=== PATIENT | male | born 1955 | race Caucasian/White ===

== ENCOUNTER 2021-04-16 09:00 | Outpatient (CLI) | payer OTHER, SELFPAY ==
--- NOTE | 2021-04-16 09:30 | USCV_ITS ---
Roel Dias Age: 66 Gender: M : 1955 Exam Date: 04/16/2021 09:17 Ordering Phys: Isidro Denton MD ([email or web address] [email or web address]) Technologist: Jericho Vang Exam Location: [facility] – [place] Indication: disorder of arteries Risk Factors: Previous Vascular Surgery: Right Brachial BP: / Left Brachial BP: / Right Left Velocity (cm/s) Spectral Plaque Velocity (cm/s) Spectral Plaque Syst/Diast Broadening Syst/Diast Broadening 87.10/ 22.10 Prox CCA 114.50/ 26.50 95.90/ 24.30 Mid CCA 86.30 / 20.50 61.70/ 19.80 Distal CCA 64.10 / 25.60 99.20/ 19.80 Prox ICA 61.50 / 17.10 Homo 73.50/ 23.90 Mid ICA 71.80 / 31.60 57.30/ 18.80 Distal ICA 78.60 / 35.90 79.40 ECA 86.30 0.77 ICA/CCA 0.83 Antegrade Vertebral Antegrade 36.80/ 11.20 cm/s 42.10/ 14.50 cm/s Tri Subclavian Tri 82.20 60.50 FINDINGS Intimal thickening in the common carotid arteries and at the bifurcation bilaterally. Antegrade flow in the vertebral arteries bilaterally. Normal Doppler flow velocities in the external carotid , vertebral and subclavian arteries bilaterally CONCLUSIONS Intimal thickening in the common carotid arteries and at the bifurcation bilaterally. No significant stenosis or any unstable lesions, based on the above findings Dr Isidro Denton MD [facility] (Electronically Signed) Final Date: 17 April 2021 10:19 S
--- NOTE | 2021-04-16 10:15 | USCV_ITS ---
Roel Dias Age: 66 Gender: M : 1955 Exam Date: 04/16/2021 09:35 Ordering Phys: Isidro Denton MD ([email or web address]) Technologist: Jericho Vang Exam Location: [facility] – [place] Indication: unspecified artery disorder BP: 128 / 78 HR: 58 Rhythm: Sinus Technical Quality: Adequate MEASUREMENTS (Male / Female) Normal Values 2D ECHO LV Diastolic Diameter PLAX 3.5 cm 4.2 - 5.9 / 3.9 - 5.3 cm LV Systolic Diameter PLAX 2.0 cm IVS Diastolic Thickness 1.2 cm 0.6 - 1.0 / 0.6 - 0.9 cm IVS Systolic Thickness 1.6 cm LVPW Diastolic Thickness 1.6 cm 0.6 - 1.0 / 0.6 - 0.9 cm LVPW Systolic Thickness 1.5 cm LVOT Diameter 2.0 cm LV Ejection Fraction 2D Teich 78.0 % LV Ejection Fraction MOD 2C 72.3 % LV Ejection Fraction 2C AL 72.6 % LA Diameter 2.8 cm LA Width 2.9 cm LA Height 2.9 cm RA Width 3.0 cm RA Height 3.9 cm Aorta at Sinotubular Diameter 3.1 cm M-MODE Aortic Annulus Diameter 3.3 cm LA Ao Ratio MM 0.9 DOPPLER AV Peak Velocity 129.0 cm/s LVOT Peak Velocity 119.0 cm/s AV Area Cont Eq vti 3.2 cm squared AV Area Cont Eq pk 3.0 cm squared MV Peak Velocity 90.0 cm/s MV Area PHT 4.0 cm squared Mitral E to A Ratio 1.3 MV E' Velocity 39.0 cm/s Mitral E to MV E' Ratio 8.7 Mitral E to LV E' Lateral Ratio 9.7 Mitral E to LV E' Septal Ratio 8.0 TR Peak Velocity 81.7 cm/s TR Peak Gradient 2.7 mmHg TR Mean Velocity 64.2 cm/s TR Mean Gradient 1.8 mmHg TR Velocity Time Integral 20.3 cm Right Atrial Pressure 3.0 mmHg Pulmonary Artery Systolic Pressu 5.7 mmHg PV Peak Velocity 63.0 cm/s RV Acceleration Time 0.1 s RV Ejection Time 0.3 s RV AcT/ET 0.4 FINDINGS Left Ventricle Normal left ventricular size and systolic function, EF 66 %. No regional wall motion abnormalities. Mild left ventricular hypertrophy. Right Ventricle The right ventricle is normal in size and function. Right Atrium The right atrium is normal in size. Left Atrium The left atrium is normal in size. Mitral Valve No gross abnormalities noted Aortic Valve No gross abnormalities noted Tricuspid Valve No gross abnormalities noted Pulmonic Valve Pulmonic valve not well visualized. Pericardium Normal pericardium without effusion. Aorta Normal ascending aorta dimension. CONCLUSIONS Normal left ventricular size and systolic function, EF 66 %. No regional wall motion abnormalities. Mild left ventricular hypertrophy. Normal cardiac chamber sizes. No significant stenotic or regurgitant lesions. There is no pericardial effusion. There are no intracardiac masses. No previous study is available for comparison. Dr Isidro Denton MD [facility] (Electronically Signed) Final Date: 16 April 2021 18:53 S
== END 2021-04-16 09:01 | disposition home or self-care (01) ==
LOC: US 09:02
PROVIDERS: PCP Family Medicine; Visit Provider Internal Medicine Cardiovascular Disease
DX: I77.9 Disorder of arteries and arterioles, unspecified (principal)
CPT/HCPCS: 93306; 93880

== ENCOUNTER → 2021-05-10 15:38 | Outpatient (BNVA) | payer MEDICARE, SELFPAY | PROVIDERS: PCP Family Medicine; Visit Provider Orthopaedic Surgery | DX: Z01.812 Encounter for preprocedural laboratory examination (principal); Z20.822 Contact with and (suspected) exposure to COVID-19 | CPT/HCPCS: 87635 ==

== ENCOUNTER 2021-05-16 06:02 | Day surgery (SDC) | payer OTHER, MEDICARE, SELFPAY ==
[2021-05-15 11:38] VITALS: BMI 24.2
[2021-05-16] VITALS (13 sets, daily range): BP systolic 126–157; BP diastolic 65–82; PULSE 52–68; RESP 14–18; TEMP 36.2–36.4; O2SAT 97–100
[2021-05-16] MEDS: sodium chloride 0.9% 1,000 ML 30 ML IV (06:40)
--- NOTE | 2021-05-16 07:24 | W.PM.OPSUD ---
Surgery/Procedure H&P Update DATE OF PROCEDURE: May 16, 2021 DATE H&P PERFORMED: 04/23/21 PREOP DIAGNOSIS: Mass left hand PLANNED PROCEDURE: Operation Date: 05/16/21 07:00 Proposed Procedures p Excision Of Ganglion Cyst L hand M67.442 [id number](Left) - Balwinder Rangel MD
--- NOTE | 2021-05-16 08:14 | P.OP_ITS ---
Operative Report Date of procedure: May 16, 2021 Pre-op Diagnosis: Mass left hand Post-op Diagnosis: Osteophyte left hand index metacarpal Procedure Done: Removal of osteophyte left hand index metacarpal Pathology: other Pathology: Small foreign body was sent to pathology Surgeon: Balwinder Rangel Anesthesia: Local Tourniquet time (min): 20 Findings: The patient had a tender prominent osteophyte over his index finger ul david metacarpal head. A small foreign body was identified overlying the osteophyte that was sent for pathology Condition: stable Disposition: PACU Procedure: The patient was taken to the operating room. He was prepped and draped with his left hand exposed. A timeout was performed. The hand was infiltrated with approximately 2 cc of 0.5% Marcaine. A longitudinal incision was made over the palpable prominence of the index finger metacarpal. Dissection was carried down through the skin revealing what was felt to be a prominent osteophyte of the index metacarpal. Overlying that osteophyte a small dark sliver-like foreign body was identified. This was removed and sent for pathology for better identification. The periosteum over the metacarpal was then divided longitudinally and reflected dorsally and palmarly. A rongeur was used to remove prominent osteophyte of the bone. The skin was then reapproximated with 3-0 Prolene. A compressive dressing was applied. The patient was taken recovery room in stable condition.
--- NOTE | 2021-05-16 15:16 | ANE.PACU2 ---
Inpatient post-anesthesia follow up: Airway intact: Yes Vital signs: Temperature 97.6 F Pulse Rate 63 Respiratory Rate 15 Blood Pressure 157/82 Pulse Oximetry 97 Oxygen Delivery Me thod Room Air Oxygen Flow Rate 8 Fraction of Inspir ed Oxygen Hydration adequate: Yes Nausea and vomiting: No Pain level: 2 Mental status: Baseline
== END 2021-05-16 08:59 | disposition home or self-care (01) ==
PROVIDERS: PCP Family Medicine; Visit Provider Orthopaedic Surgery
PROC: (CPT 10120; principal; 2021-05-16 07:00)
DX: S60.552A Superficial foreign body of left hand, initial encounter (principal); X58.XXXA Exposure to other specified factors, initial encounter; F03.90 Unspecified dementia, unspecified severity, without behavioral disturbance, psychotic disturbance, mood disturbance, and anxiety; E78.5 Hyperlipidemia, unspecified
CPT/HCPCS: 10120; 88300; J2250; J3490; J7030

== ENCOUNTER 2021-05-22 11:29 | Outpatient (CLI) | payer OTHER, SELFPAY ==
[2021-05-22 12:00] VITALS: BMI 23.5
--- NOTE | 2021-05-22 12:22 | NMCV_ITS ---
NM je perf SPECT r/s* [id number] Roel Dias Age: 66 Gender: M : 1955 Exam Date: 05/22/2021 12:48 Ordering Phys: Isidro Denton MD ([email or web address]) Technologist: DEWAYNE Parra Exam Location: [facility] Indications: CHEST PAIN STRESS TEST Please [facility] for [facility] IMAGE PROTOCOL Rest/Stress 1 Exercise Day Radiopharmaceutical Dose (mCi) Administration Site Administered by Rest: Tc-99m 10.4 IV DEWAYNE Lomeli Sestamibi Stress:Tc-99m 32.3 IV DEWAYNE Parra Sestamikeegan Rest: 22-May-2021 60 Discovery 630 Stress: 22-May-2021 15 Discovery 630 Radiopharmaceutical was injected at 85 % maximum heart rate. Images obtained in supine and prone position. SPECT RESULTS Technical Quality: Excellent Raw Data Analysis: Normal Image Corrections: Patient motion artifact - motion correction applied Summed Stress Score: 0 Summed Rest Score: 0 Summed Difference Score: 0 PERFUSION FINDINGS Fairly uniform myocardial tracer uptake with no significant perfusion abnormalities FUNCTIONAL RESULTS (calculated via Gated SPECT) Stress Image LV EF (%): 89 Stress EDV (mL):56 TID: 0.74 Stress ESV (mL):6 FUNCTIONAL FINDINGS: Segmental wall motion analysis revealing no gross wall motion abnormalities. IMPRESSIONS 1. Unremarkable myocardial perfusion imaging 2. Normal LV ejection fraction of 89%. 3. LV wall motion analysis revealing no gross wall motion of normalities. 4. Normal LV volume. No significant coronary ischemia, based on the above finding Dr Isidro Denton MD [facility] (Electronically Signed) Final Date: 22 May 2021 17:50 S
--- NOTE | 2021-05-22 12:22 | ECG_ITS ---
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 Interpretive Statements NAME OF STUDY: EXERCISE SESTAMIBI STRESS TEST INDICATION: Chest Pain PROCEDURE: The baseline electrocardiogram showed normal sinus rhythm with normal ST-Ts incomplete right bundle branch block. At the baseline, the patient's blood pressure was 112/66 mm Hg with a heart rate of 72. The patient exercised for 10 minutes and 30 seconds on a standard Candelario protocol. Patient attained a maximum heart rate of 132 beats per minute( 85 % of the maximum predicted heart rate) with a blood pressure at the peak exercise of 171/49 mm Hg. The EKG at the peak exercise revealed no significant changes. Patient did not have any chest pain or any significant arrhythmis with the exercise Sestamibi was injected 1 minute prior to the peak exercise During the recovery phase, there were no new changes. Blood pressure at the end of the recovery phase was 128/47 mm Hg with a heart rate of 88 per minute. CONCLUSION: 1. No significant EKG changes with the treadmill exercise 2. No exercise-induced chest pain or cardiac arrhythmia 3. Good exercise tolerance, attained a maximum of 13.5 METs 4. Sestamibi/Sestamibi perfusion results pending; see separate report. Electronically Signed On 05-30-2021 0:27:32 CDT by Isidro Denton M.D. [id number]
[2021-05-22 14:12] VITALS: BP 128/47; PULSE 72
== END 2021-05-22 11:30 | disposition home or self-care (01) ==
PROVIDERS: PCP Family Medicine; Visit Provider Internal Medicine Cardiovascular Disease
DX: R07.9 Chest pain, unspecified (principal)
CPT/HCPCS: 78452; 93017; A9500

== ENCOUNTER → 2021-07-02 08:59 | Outpatient (BNVA) | payer OTHER, SELFPAY | PROVIDERS: PCP Family Medicine; Visit Provider Nurse Practitioner Family | DX: Z20.822 Contact with and (suspected) exposure to COVID-19 (principal) | CPT/HCPCS: 87635 ==

== ENCOUNTER → 2021-07-09 10:10 | Outpatient (BNVA) | payer OTHER, SELFPAY | PROVIDERS: PCP Family Medicine; Visit Provider Nurse Practitioner Family | DX: Z20.822 Contact with and (suspected) exposure to COVID-19 (principal) | CPT/HCPCS: 87635 ==

== ENCOUNTER → 2021-07-16 11:04 | Outpatient (BNVA) | payer OTHER, SELFPAY | PROVIDERS: PCP Family Medicine; Referring Provider Family Medicine; Visit Provider Specialist | DX: G30.9 Alzheimer's disease, unspecified (principal); F02.80 Dementia in other diseases classified elsewhere, unspecified severity, without behavioral disturbance, psychotic disturbance, mood disturbance, and anxiety; F17.210 Nicotine dependence, cigarettes, uncomplicated | CPT/HCPCS: 96116; 99204; 99205 ==

== ENCOUNTER → 2021-10-15 10:52 | Outpatient (BNVA) | payer OTHER, SELFPAY | PROVIDERS: PCP Family Medicine; Visit Provider Specialist | DX: G30.9 Alzheimer's disease, unspecified (principal); F02.80 Dementia in other diseases classified elsewhere, unspecified severity, without behavioral disturbance, psychotic disturbance, mood disturbance, and anxiety; F17.210 Nicotine dependence, cigarettes, uncomplicated | CPT/HCPCS: 99213; 99214 ==

== ENCOUNTER → 2022-02-24 12:33 | Outpatient (BNVA) | payer OTHER, SELFPAY | PROVIDERS: PCP Family Medicine; Visit Provider Internal Medicine Cardiovascular Disease | DX: R00.2 Palpitations (principal); R07.89 Other chest pain; E78.2 Mixed hyperlipidemia; G47.39 Other sleep apnea; F17.210 Nicotine dependence, cigarettes, uncomplicated | CPT/HCPCS: 99213 ==

== ENCOUNTER → 2022-04-09 10:00 | Outpatient (BNVA) | payer OTHER, SELFPAY | PROVIDERS: PCP Family Medicine; Visit Provider Specialist | DX: G30.9 Alzheimer's disease, unspecified (principal); F02.80 Dementia in other diseases classified elsewhere, unspecified severity, without behavioral disturbance, psychotic disturbance, mood disturbance, and anxiety | CPT/HCPCS: 96116; 99214 ==

== ENCOUNTER → 2022-04-29 12:04 | Outpatient (BNVA) | payer OTHER, SELFPAY | PROVIDERS: PCP Family Medicine; Visit Provider Nurse Practitioner Family | DX: R05.9 Cough, unspecified (principal); J06.9 Acute upper respiratory infection, unspecified; J32.0 Chronic maxillary sinusitis; Z20.822 Contact with and (suspected) exposure to COVID-19 | CPT/HCPCS: 87635 ==

== ENCOUNTER 2022-05-03 21:54 | Emergency (ER) | payer OTHER, MEDICARE, SELFPAY ==
[2022-05-03 22:04] VITALS: BP 102/51; PULSE 49; RESP 18; TEMP 36.7; O2SAT 96; BMI 23.5
[2022-05-03 22:09] VITALS: BP 114/49; PULSE 44; RESP 16; O2SAT 96
--- NOTE | 2022-05-03 22:10 | XRR_ITS ---
PROCEDURE INFORMATION: Exam: XR Chest Exam date and time: 05/03/2022 10:18 PM Age: 67 years old Clinical indication: Cough and shortness of breath; Additional info: SOB TECHNIQUE: Imaging protocol: Radiologic exam of the chest. Views: 1 view. COMPARISON: No relevant prior studies available. FINDINGS: Lungs: Unremarkable. No consolidation. Pleural spaces: Unremarkable. No pleural effusion. No pneumothorax. Heart/Mediastinum: Unremarkable. No cardiomegaly. Bones/joints: Unremarkable. XR/XR chest 1V [id number] IMPRESSION: No acute findings.
--- NOTE | 2022-05-03 22:10 | ECG_ITS ---
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 Measurements Intervals [place] Rate: 48 P: 48 OH: 154 QRS: 51 QRSD: 102 T: 60 QT: 450 QTc: 403 Interpretive Statements SINUS BRADYCARDIA POSSIBLE RIGHT VENTRICULAR CONDUCTION DELAY [RSR (QR) IN V1/V2] POSSIBLE LEFT VENTRICULAR HYPERTROPHY [VOLTAGE CRITERIA PLUS LAE OR QRS WIDENING] INTERPRETATION BASED ON A DEFAULT AGE OF 40 YEARS Compared to ECG 06/05/2017 15:40:18 Sinus rhythm no longer present Electronically Signed On 05-04-2022 8:23:22 CDT by Blaise Fitzpatrick M.D. [id number]
[2022-05-04 00:37] LABS: Basophils % 0.2 %; Hematocrit 39.3 % (42.0-52.0); Hemoglobin 12.7 g/dL (11.7-16.6); Lymphocytes # 1.1 10^3/uL (0.8-4.8); Lymphocytes % 5.8 %; Mean Corpuscular HGB Conc 32.3 g/dL (30.0-36.0); Mean Corpuscular Hemoglobin 29.7 pg (28.0-34.0); Mean Platelet Volume 9.8 fL (7.4-10.4); Monocytes % 5.3 %; Neutrophils # 16.05 10^3/uL (1.8-7.7); Neutrophils % 88.2 %; Nucleated Red Blood Cells % 0 %; Platelet Count 412 10^3/cmm (130-400); Red Blood Count 4.27 10^6/uL (4.1-5.3); White Blood Count 18.2 10^3/uL (4.0-10.0)
[2022-05-04 00:56] LABS: Troponin(5th) Baseline 7 ng/L (0-15)
[2022-05-04 01:06] LABS: Alanine Aminotransferase 21 U/L (0-41); Albumin Level 4.4 g/dL (3.5-5.2); Alkaline Phosphatase 83 U/L (40-130); Anion Gap 17.5 (5-19); Aspartate Amino Transferase 17 U/L (0-40); Blood Urea Nitrogen 16 mg/dL (8-23); Calcium 9.8 mg/dL (8.5-10.5); Carbon Dioxide 24 mmol/L (22-29); Chloride 105 mmol/L (98-107); Globulin 2.3 g/dL (1.3-4.6); Glomerular Filtration Rate 96.4 mL/min (90-130); Glucose 112 mg/dL (65-115); Magnesium 2.2 mg/dL (1.7-2.3); NT Pro B Type Natriuretic Pept 550 pg/mL (0-125); Osmolality Calculated 296 mOsm/kg (285-295); Potassium 4.5 mmol/L (3.5-5.1); Sodium 142 mmol/L (136-145); Total Bilirubin 0.2 mg/dL (0.15-1.2); Total Protein 6.7 g/dL (6.6-8.7)
--- NOTE | 2022-05-04 15:05 | ED_ITS ---
HPI - SOB/Dyspnea General: Chief Complaint: Shortness of Breath/Dyspnea Stated Complaint: Covid +\Light Head Time Seen by Provider: 05/03/22 23:54 Source: patient History of Present Illness: HPI Narrative: 67 year old male with a history of COVID-19, symptoms began nearly a week ago already presents with dizziness. 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 He presents with a heart rate of 40, and some continued dizziness parities awake alert and talking. He denies any chest discomfort, nice shortness of breath. He has a continued cough. MD elicited complaint: cough Pertinent past history: other Onset (ago): day(s) Context: recent illness Exacerbating factors: nothing Relieving factors: nothing Associated symptoms: Reports dizziness and palpitations; Deny abdominal pain, chest pain, fever(s), myalgias, nausea, syncope or vomiting Review of Systems Const: Denies: fever(s), chills or body aches Eyes: Denies: change in vision ENMT: Denies: throat pain Card: Reports: palpitations; Denies: chest pain or syncope Resp: Denies: dyspnea, productive cough, non-productive cough or wheezing GI: Denies: abdominal pain, nausea, vomiting, diarrhea or hematochezia Skin/Breast: Denies: rash Neuro: Reports: dizziness; Denies: headache(s) or confusion PFSH ED PFSH: Medical History Adjustment disorder with depressed mood Ataxia Chest pain Dementia Dizziness and giddiness GERD (gastroesophageal reflux disease) Hx of retained foreign body fully removed Hyperlipidemia Insomnia Low back pain Memory loss Peripheral vertigo Sleep apnea Syncope and collapse Surgical History History of back surgery History of mandibular surgery Family History Family/Other Cancer CAD (coronary artery disease) Lung disease Father Dementia Grandfather Dementia Brother Diabetes Sister Diabetes Lung disease Other Hyperlipidemia Denies family history of Clotting disorder Chronic kidney disease (CKD) Suicide Anesthesia complication Bleeding disorder Stroke Social History Smoking and tobacco status: current every day smoker cigarettes Packs smoked per day: 1 Years cigarettes smoked: 50 Second hand smoke exposure: No Alcohol intake: never Caregiver/support person: No Lives independently: Yes Household members: spouse Marital status: service: Yes branch: [employer] Current occupational status: retired History of recent travel: No Current gender identity: Male Special rex needs: No Physical Exam Const: COMMON NORMALS: alert GENERAL APPEARANCE: well developed ORIENTATION/CONSCIOUSNESS: Yes awake, Yes oriented to person, Yes oriented to place and Yes oriented to time HENMT: COMMON NORMALS: normocephalic HEAD & SCALP: normocephalic FACE & SINUS: normal facial exam Eye: COMMON NORMALS: Equal, round and reactive pupils present, EOMs intact bilaterally and conjunctivae normal CONJUNCTIVA: Yes conjunctivae normal PUPIL: Yes Equal, round and reactive pupils present Neck/C-Spine: GENERAL: No tracheal deviation CERVICAL SPINE: No Paracervical spasm Chest: CHEST: Yes Symmetrical chest wall rise Resp: EFFORT & INSPECTION: No tachypneic, No respiratory distress and No uses accessory muscles AUSCULTATION: no rhonchi and lung sounds not diminished Cardio: COMMON NORMALS: regular rhythm RATE: bradycardic RHYTHM: regular rhythm HEART SOUNDS: no murmurs PERIPHERAL PULSES: radial pulses present GI: INSPECTION: No abdominal distension PALPATION: No Guarding due to palpation present (GI) and No Rigid due to palpation Extremity: COMMON NORMALS: no pedal edema Neuro: RYAN COMA SCALE: document GCS findings Ryan coma scale eye opening: Spontaneous [place] coma scale verbal response: Orientated [place] coma scale motor response: Obey commands Ryan coma scale total score: 15 SENSORIUM/ORIENTATION: Yes alert, Yes oriented to person, Yes oriented to place and Yes oriented to time Psych: COMMON NORMALS: mental status grossly normal and speech normal SPEECH: Yes normal speech Skin: COMMON NORMALS: no rashes or lesions noted GENERAL SKIN EXAM: no rashes or lesions noted Course Vital Signs: Vital signs: Vital Signs Temperature 98.0 F 05/03/22 22:04 Pulse Rate 44 L 05/03/22 22:09 Respiratory Rate 16 05/03/22 22:09 Blood Pressure 114/49 05/03/22 22:09 Pulse Oximetry 96 05/03/22 22:09 Oxygen Delivery Me thod 05/03/22 22:04 MDM - SOB/Dyspnea Medical Decision Making 67 year old gentleman with Norbert cardia that is symptomatic. He is dizzy. He is not syncable. He has no chest pain. He is normotensive essentially. He has received fluid bolus here. It's just X-ray is negative. There is no block on his EKG. His laboratory is benign. 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 I suspect this is an effect of COVID-19. the patient denies ever having had chest pain. Lab Data : 05/04/22 00:17 05/04/22 00:17 Labs/Radiology: Radiology Impressions Chest X-Ray 05/03/22 22:10 IMPRESSION: No acute findings. Laboratory Results WBC 18.2 10^3/uL (4.0-10.0) H 05/04/22 00:17 RBC 4.27 10^6/uL (4.1-5.3) 05/04/22 00:17 Hgb 12.7 g/dL (11.7-16.6) 05/04/22 00:17 Hct 39.3 % (42.0-52.0) L 05/04/22 00:17 MCV 92.0 fl (80-94) 05/04/22 00:17 MCH 29.7 pg (28.0-34.0) 05/04/22 00:17 MCHC 32.3 g/dL (30.0-36.0) 05/04/22 00:17 RDW 14.0 % (12.1-15.1) 05/04/22 00:17 Plt Count 412 10^3/cmm (130-400) H 05/04/22 00:17 MPV 9.8 fL (7.4-10.4) 05/04/22 00:17 Neut % (Auto) 88.2 % 05/04/22 00:17 Lymph % (Auto) 5.8 % 05/04/22 00:17 Preston % (Auto) 5.3 % 05/04/22 00:17 Eos % (Auto) 0.0 % 05/04/22 00:17 Baso % (Auto) 0.2 % 05/04/22 00:17 Neut # (Auto) 16.05 10^3/uL (1.8-7.7) H 05/04/22 00:17 Lymph # (Auto) 1.1 10^3/uL (0.8-4.8) 05/04/22 00:17 Preston # (Auto) 1.0 10^3/uL (0.2-0.9) H 05/04/22 00:17 Eos # (Auto) 0.0 10^3/uL (0.0-0.8) 05/04/22 00:17 Baso # (Auto) 0.0 10^3/uL (0.0-0.1) 05/04/22 00:17 Nucleated RBC % (auto) 0 % 05/04/22 00:17 Nucleated RBCs # 0.0 /100WBC 05/04/22 00:17 Sodium 142 mmol/L (136-145) 05/04/22 00:17 Potassium 4.5 mmol/L (3.5-5.1) 05/04/22 00:17 Chloride 105 mmol/L (98-107) 05/04/22 00:17 Carbon Dioxide 24 mmol/L (22-29) 05/04/22 00:17 Anion Gap 17.5 (5-19) 05/04/22 00:17 BUN 16 mg/dL (8-23) 05/04/22 00:17 Creatinine 0.8 mg/dL (0.7-1.2) 05/04/22 00:17 GFR Calculation 96.4 mL/min (90-130) 05/04/22 00:17 Glucose 112 mg/dL (65-115) 05/04/22 00:17 Calculated Osmolality 296 mOsm/kg (285-295) H 05/04/22 00:17 Calcium 9.8 mg/dL (8.5-10.5) 05/04/22 00:17 Magnesium 2.2 mg/dL (1.7-2.3) 05/04/22 00:17 Total Bilirubin 0.2 mg/dL (0.15-1.2) 05/04/22 00:17 AST 17 U/L (0-40) 05/04/22 00:17 ALT 21 U/L (0-41) 05/04/22 00:17 Alkaline Phosphatase 83 U/L (40-130) 05/04/22 00:17 Troponin T Baseline 7 ng/L (0-15) 05/04/22 00:17 NT-Pro-B Natriuret Pep 550 pg/mL (0-125) H 05/04/22 00:17 Total Protein 6.7 g/dL (6.6-8.7) 05/04/22 00:17 Albumin 4.4 g/dL (3.5-5.2) 05/04/22 00:17 Globulin 2.3 g/dL (1.3-4.6) 05/04/22 00:17 Discharge Plan Discharge Patient Disposition: Home Clinical Impression: COVID-19, Bradycardia Condition: Stable Prescriptions: No Action famotidine 20 mg tablet 20 mg PO BID multivitamin Tablet 1 tab PO DAILY cholecalciferol (vitamin D3) 50 mcg (2,000 unit) capsule 50 mcg PO DAILY simvastatin 20 mg tablet 20 mg PO DAILY azithromycin [Zithromax Z-Tre] 250 mg tablet See Rx Instructions PO .COMPLEX Qty: 6 0RF Rx Instructions: take 500 mg today (day 1), then 250 mg for 4 days (days 2-5) PO promethazine-DM 6.25-15 mg/5 mL syrup 5 - 10 ml PO Q6H Qty: 200 0RF methylprednisolone [Medrol (Tre)] 4 mg tablets,dose pack See Rx Instructions PO PER PKG DIR Qty: 21 0RF Rx Instructions: PO PER PKG DIR metoprolol tartrate 25 mg tablet 12.5 mg PO BID Qty: 100 3RF Rx Instructions: Take 1/2 tab by mouth twice daily galantamine 8 mg tablet 8 mg PO BID Qty: 180 1RF Rx Instructions: administer with AM and PM meals Discharge Orders: Discharge ED (Routine); Ordered 05/04/22 Ordered By: El Whitten Referrals: Cindy Samuels MD [Primary Care Provider] - 1-3 days Isidro Denton MD [Physician] - Activity Restrictions/Additional Instructions: Return for any worsening chest discomfort, shortness of breath, inability to control fever, vomiting, etc. Monitor your heart rate at home return for symptomatic low heart rates. Case management will call you regarding setting up your Holter monitor. 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 Coding Level of Care Code ED Microfilm Machine Operator for Marlon Diego
--- NOTE | 2022-05-05 15:29 | DCPLANNER ---
Addendum entered by Lissa Asencio 05/15/22 08:27: or nurse manager received the following message from the [facility] clinic regarding follow up appointment: spoke with pt - he stated I don't feel like I needs another monitor since I had one fro 30 days already and my current symptoms are only due to Covid since Dr Denton had done all the prior testing and told me he doesn't need to see me again Original Note: or nurse manager had message to schedule an outpatient halter monitor for patient. Patient has [employer] insurance, case management director sent patients information to the front office staff at [facility]. If the self pay specialist wants patient to have an halter monitor the self pay specialist can place the order for patient. or nurse manager sent patients information to the front office staff at [facility]. Patients information will be printed and reviewed. Clinic will call patient with appointment information.
== END 2022-05-04 02:06 | disposition home or self-care (01) ==
PROVIDERS: Emergency Provider Emergency Medicine; PCP Family Medicine
DX: U07.1 COVID-19 (principal); R00.1 Bradycardia, unspecified; F17.210 Nicotine dependence, cigarettes, uncomplicated; F03.90 Unspecified dementia, unspecified severity, without behavioral disturbance, psychotic disturbance, mood disturbance, and anxiety; E78.5 Hyperlipidemia, unspecified
CPT/HCPCS: 71045; 80053; 83735; 83880; 84484; 85025; 93005; 93246; 99285

== ENCOUNTER → 2022-11-27 08:48 | Outpatient (BNVA) | payer OTHER, SELFPAY | PROVIDERS: PCP Family Medicine; Visit Provider Specialist | DX: G30.9 Alzheimer's disease, unspecified (principal); F02.80 Dementia in other diseases classified elsewhere, unspecified severity, without behavioral disturbance, psychotic disturbance, mood disturbance, and anxiety | CPT/HCPCS: G0463 ==

== ENCOUNTER → 2023-01-02 11:12 | Outpatient (BNVA) | payer OTHER, SELFPAY | PROVIDERS: PCP Family Medicine; Visit Provider Specialist | DX: E78.2 Mixed hyperlipidemia (principal); Z72.0 Tobacco use | CPT/HCPCS: 99214 ==

== ENCOUNTER → 2023-01-08 15:30 | Outpatient (BNVA) | payer MEDICARE, SELFPAY | PROVIDERS: PCP Family Medicine; Visit Provider Family Medicine | DX: M79.645 Pain in left finger(s) (principal) | CPT/HCPCS: 73130 ==

== ENCOUNTER → 2023-11-10 14:43 | Outpatient (BNVA) | payer MEDICARE, SELFPAY | PROVIDERS: PCP Family Medicine; Visit Provider Internal Medicine Cardiovascular Disease | DX: R07.9 Chest pain, unspecified (principal); R07.89 Other chest pain; E78.2 Mixed hyperlipidemia; Z72.0 Tobacco use; G47.33 Obstructive sleep apnea (adult) (pediatric) | CPT/HCPCS: 93005; 99214 ==

== ENCOUNTER 2024-02-15 20:00 | Outpatient (CLI) | payer OTHER, SELFPAY | END 2024-02-15 20:01 | disposition home or self-care (01) | LOC: SLEEP 02-16 06:23 | PROVIDERS: PCP Family Medicine; Visit Provider Family Medicine | DX: G47.33 Obstructive sleep apnea (adult) (pediatric) (principal) | CPT/HCPCS: 95810 ==

== ENCOUNTER 2024-04-05 20:13 | Emergency (ER) | payer OTHER, MEDICARE, SELFPAY ==
[2024-04-05 20:17] VITALS: BP 128/63; PULSE 65; RESP 16; TEMP 36.8; O2SAT 98
--- NOTE | 2024-04-05 20:34 | XRR_ITS ---
PROCEDURE INFORMATION: Exam: XR Left Hand Exam date and time: 04/05/2024 8:50 PM Age: 69 years old Clinical indication: Injury or trauma; Other: Cut lt middle finger; Laceration; Left; Injury details: It is the lt hand first 3 images were marked wrong; Additional info: Skill saw injury TECHNIQUE: Imaging protocol: Radiologic exam of the left hand. Views: 3 or more views. COMPARISON: No relevant prior studies available. FINDINGS: Bones/joints: No acute fractures or subluxations. Soft tissues: Soft tissue swelling and irregularity of the distal hand overlying the proximal 3rd digit. There is a 3.0 cm metallic density overlying the third carpometacarpal phalangeal joint. XR/XR hand LT min 3V* [id number] IMPRESSION: No acute fractures or subluxations. Soft tissue swelling and irregularity of the distal hand overlying the proximal 3rd digit. There is a 3.0 cm metallic density overlying the third carpometacarpal phalangeal joint.
[2024-04-05] MEDS: tetanus-dipt-pertussis 0.5 mL SDV IM (20:35)
[2024-04-05] MEDS: lidocaine 2% INJ 20 mL INJECTION (20:41)
--- NOTE | 2024-04-05 20:41 | ED_ITS ---
HPI - Wound/Laceration General: Chief Complaint: Wound/Laceration Stated Complaint: lac on Left finger/hand Time Seen by Provider: 04/05/24 20:23 Source: patient Mode of arrival: ambulatory Limitations: no limitations History of Present Illness: Patient is a 69-year-old male presenting to the emergency department for a laceration to his left middle finger onset prior to arrival. Patient was using a skill saw when it slipped and cut the dorsal aspect of his left middle finger. His tetanus is not up-to-date. Bleeding controlled on arrival with direct pressure. Is not on any blood thinners. No distal neurovascular complaints. He still has full range of motion of the finger. States the pain is mild at this time. No other injuries. No other symptoms to report at this time. Onset (ago): minute(s) Extremity Location: Left: hand Place: home Patient tetanus UTD: No Context: accidental Associated symptoms: Denies chills, fever(s), nausea or vomiting Treatments prior to arrival: bandage Review of Systems General: Reports: 10 or more systems reviewed and unremarkable except in HPI and below Const: Denies: fever(s) or chills Card: Denies: chest pain Resp: Denies: dyspnea GI: Denies: abdominal pain, nausea, vomiting or diarrhea Musc: Denies: extremity pain or joint pain Skin/Breast: Reports: skin pain, skin tenderness and new lesions (laceration to left middle finger); Denies: rash Neuro: Denies: headache(s) [facility] ED PFSH: Medical History Chest pain Ataxia Memory loss Insomnia Adjustment disorder with depressed mood Dizziness and giddiness GERD (gastroesophageal reflux disease) Low back pain Peripheral vertigo Dementia Hx of retained foreign body fully removed Hyperlipidemia Sleep apnea Syncope and collapse Surgical History History of mandibular surgery History of back surgery Family History Family/Other Cancer CAD (coronary artery disease) Lung disease Father Dementia Grandfather Dementia Brother Diabetes Sister Diabetes Lung disease Other Hyperlipidemia Denies family history of Clotting disorder Chronic kidney disease (CKD) Suicide Anesthesia complication Bleeding disorder Stroke Social History (Reviewed 04/05/24 @ 20:48 by ETTA Hoffmann Smoking and tobacco/nicotine status: former use of tobacco/nicotine Second hand smoke exposure: No Alcohol intake: never Substance/Drug Use: never Caregiver/support person: No Lives independently: Yes Household members: spouse Marital status: service: Yes branch: [employer] Current occupational status: retired Current gender identity: Male Special rex needs: No Physical Exam Const: COMMON NORMALS: no acute distress, average body habitus, patient oriented x3, no limitations, healthy appearing, alert and well nourished HENMT: COMMON NORMALS: normocephalic and atraumatic HEAD & SCALP: normocephalic and atraumatic Neck/C-Spine: COMMON NORMALS: full ROM, no lymphadenopathy, supple and no meningeal signs Resp: COMMON NORMALS: normal respiratory effort, No use of accessory muscles and clear to auscultation bilaterally AUSCULTATION: clear to auscultation bilaterally Cardio: COMMON NORMALS: regular rate and regular rhythm RATE: regular rate RHYTHM: regular rhythm Extremity: COMMON NORMALS: full ROM and capillary refill normal NARRATIVE EXTREMITY EXAM: No bony joint tenderness. Full range of motion. No joint enlargement. Neuro: COMMON NORMALS: patient oriented x3 SENSORIUM/ORIENTATION: Yes alert MENINGEAL SIGNS: Yes no meningeal signs Skin: COMMON NORMALS: turgor normal NARRATIVE SKIN EXAM: Superficial laceration dorsal aspect of patient's left middle finger with no active bleeding at this time. Wound does appear contaminated. No tendon or underlying structure exposure. GENERAL SKIN EXAM: turgor normal Procedures Laceration Laceration 1: Site: upper extremity Side (If applicable): left Size (cm): 7 Description: linear and contaminated Depth: involves muscle layer Local Anesthetic: lidocaine 2% Amount of anesthesia used (mL): 6 Pre-repair: wound explored, irrigated extensively and deep structures intact Skin layer closed with: nylon Size (cm): 5-0 Number of sutures: 10 Technique: simple, interrupted Nerve Block Nerve Block 1: Time out performed: No Local Anesthetic: lidocaine 2% Amount of anesthesia used (mL): 6 Side: left Nerve Blocks: digital Procedure Successful: Yes Patient Tolerated Procedure: well Complications: none Additional Comments: adequate anesthesia obtained Course Vital Signs: Vital signs: Vital Signs Temperature 98.2 F 04/05/24 20:17 Pulse Rate 68 04/05/24 21:44 Respiratory Rate 16 04/05/24 21:44 Blood Pressure 128/63 04/05/24 20:17 Pulse Oximetry 99 04/05/24 21:44 MDM - Wound/Laceration Medical Decision Making Patient presented due to laceration. His tetanus was updated today. Vitals normal on arrival and bleeding was controlled direct pressure. Wound did appear contaminated this was cleaned after digital block was performed with adequate anesthesia obtained. Laceration was repaired, see procedure note. Wound was irrigated extensively with premix Betadine and normal saline. Procedure tolerated well. He is started on clindamycin and proper wound care instructions were discussed. Reasons to return also discussed including any signs of infection, patient will be discharged home at this time. He was given 1 tablet of [place] for pain control. Lab Data Radiology Impressions Hand X-Ray 04/05/24 20:34 IMPRESSION: No acute fractures or subluxations. Soft tissue swelling and irregularity of the distal hand overlying the proximal 3rd digit. There is a 3.0 cm metallic density overlying the third carpometacarpal phalangeal joint. All radiology interpretation(s) finalized by discharge Discharge Plan Discharge Patient Disposition: Home Clinical Impression: Finger laceration Qualifiers: Encounter type: initial encounter Finger: ring finger Damage to nail status: without damage Foreign body presence: with foreign body Laterality: left Qualified Code(s): S61.225A - Laceration with foreign body of left ring finger without damage to nail, initial encounter Condition: Stable Prescriptions: New clindamycin HCl 300 mg capsule 300 mg PO BID 7 Days Qty: 14 0RF No Action cholecalciferol (vitamin D3) 50 mcg (2,000 unit) capsule 50 mcg PO DAILY PRN simvastatin 20 mg tablet 20 mg PO DAILY (DME) nebulizer accessories Kit See Rx Instructions .Route Qty: 1 0RF Rx Instructions: 1 nebulizer and all necessary supplies as needed As directed coenzyme Q10 [Co Q-10] 30 mg capsule 30 mg PO DAILY diclofenac sodium 75 mg tablet,delayed release (DR/EC) 75 mg PO BID PRN (Reason: pain) Qty: 60 0RF Rx Instructions: no ibuprofen with this metoprolol tartrate 25 mg tablet 12.5 mg PO BID Qty: 30 0RF Rx Instructions: Must have follow-up for further refills galantamine 8 mg tablet See Rx Instructions .ROUTE .COMPLEX Qty: 180 1RF Dose Instruction: TAKE ONE TABLET BY MOUTH TWICE A DAY FOR COGNITIVE IMPAIRMENT. TAKE MORNING AND EVENING WITH FOOD AND WATER. NOTE THIS IS A CHANGE IN DOSE Rx Instructions: TAKE ONE TABLET BY MOUTH TWICE A DAY FOR COGNITIVE IMPAIRMENT. TAKE MORNING AND EVENING WITH FOOD AND WATER. NOTE THIS IS A CHANGE IN DOSE Discharge Orders: Discharge ED (Routine); Ordered 04/05/24 Ordered By: Chaz Silveira Referrals: Clarita Serrano MD [Primary Care Provider] - Discharge Diet: Usual diet Discharge Activity: Increase activity as tolerated Patient Instructions: Finger Laceration (ED), Pain Management Activity Restrictions/Additional Instructions: Sutures out in 5 to 7 days. Take clindamycin as prescribed. Elevate the extremity and ice as needed. Please do not soak the wound in water. Keep wound dry at all times unless you are dabbing clean with soap and water. Tylenol and ibuprofen for pain. If you develop any new or concerning signs of infection such as any drainage or increased pain/swelling, please return for reevaluation. Otherwise follow-up with primary care as needed. Coding Level of Care Code ED Escort Service Attendant for Marlon Diego
[2024-04-05] MEDS: HYDROcodone-acetaminophen 7.5-325 mg Tablet 1 TAB PO (20:45)
[2024-04-05 21:44] VITALS: PULSE 68; RESP 16; O2SAT 99
[2024-04-05] MEDS: clindamycin 150 mg Capsule 300 MG PO (21:44)
== END 2024-04-05 21:47 | disposition home or self-care (01) ==
PROVIDERS: Emergency Provider Physician Assistant; PCP Family Medicine
DX: S61.223A Laceration with foreign body of left middle finger without damage to nail, initial encounter (principal); F03.90 Unspecified dementia, unspecified severity, without behavioral disturbance, psychotic disturbance, mood disturbance, and anxiety; E78.5 Hyperlipidemia, unspecified; Z87.891 Personal history of nicotine dependence; W27.0XXA Contact with workbench tool, initial encounter; Z23 Encounter for immunization
CPT/HCPCS: 12042; 73130; 90471; 90715; 99283; L0172

== ENCOUNTER 2024-06-06 20:00 | Outpatient (CLI) | payer OTHER, SELFPAY | END 2024-06-06 20:01 | disposition home or self-care (01) | LOC: SLEEP 20:16 | PROVIDERS: PCP Family Medicine; Visit Provider Family Medicine | DX: G47.33 Obstructive sleep apnea (adult) (pediatric) (principal); Z99.89 Dependence on other enabling machines and devices | CPT/HCPCS: 95811 ==

== ENCOUNTER → 2024-11-28 13:41 | Outpatient (BNVA) | payer OTHER, SELFPAY | PROVIDERS: PCP Family Medicine; Visit Provider Orthopaedic Surgery | DX: M65.332 Trigger finger, left middle finger (principal); Z18.9 Retained foreign body fragments, unspecified material | CPT/HCPCS: 99204 ==

== ENCOUNTER → 2024-12-12 14:06 | Outpatient (BNVA) | payer OTHER, SELFPAY | PROVIDERS: PCP Family Medicine; Visit Provider Internal Medicine Cardiovascular Disease | DX: R07.89 Other chest pain (principal); E78.2 Mixed hyperlipidemia; R00.2 Palpitations; Z72.0 Tobacco use | CPT/HCPCS: 99214 ==

== ENCOUNTER 2024-12-27 06:37 | Day surgery (SDC) | payer OTHER, SELFPAY ==
[2024-12-27] VITALS (7 sets, daily range): BP systolic 92–130; BP diastolic 55–75; PULSE 57–63; RESP 14–18; TEMP 36.1–36.7; O2SAT 94–98; BMI 25.0
[2024-12-27] MEDS: sodium chloride 0.9% 1,000 ML 30 ML IV (07:12)
--- NOTE | 2024-12-27 07:41 | W.PM.OPSUD ---
Surgery/Procedure H&P Update DATE OF PROCEDURE: December 27, 2024 DATE H&P PERFORMED: 12/12/24 H&P UPDATE INFORMATION: I have reviewed H&P completed within last 30 days, I have examined patient prior to procedure, No changes to prior documentation, H&P to be scanned into chart and Risks and benefits of the procedure reviewed PREOP DIAGNOSIS: Left long finger trigger finger, foreign body dorsal left hand PRIMARY INDICATION FOR PROCEDURE: Pain and triggering of left long finger, painful foreign body PLANNED PROCEDURE: Operation Date: 12/27/24 08:15 Proposed Procedures p Trigger Finger Release(Left) - Stanley Reynolds MD s EXTRACTION OF FOREIGN BODY OF LEFT MIDDLE FINGER(Left) - Stanley Reynolds MD
--- NOTE | 2024-12-27 07:56 | ANES.PREANE2 ---
Pre-Anesthetic Assessment Height/Weight: Height 5 ft 7 in Weight 160 lb Temp Pulse Resp BP Pulse Ox O2 Del Method 97 F L 57 L 18 121/74 98 Room Air 12/27/24 07:03 12/27/24 07:03 12/27/24 07:03 12/27/24 07:03 12/27/24 07:03 12/27/24 07:03 Preop Diagnosis: Left long finger trigger finger, foreign body dorsal left hand Operation Date: 12/27/24 08:15 Proposed Procedures p Trigger Finger Release(Left) - Stanley Reynolds MD s EXTRACTION OF FOREIGN BODY OF LEFT MIDDLE FINGER(Left) - Stanley Reynolds MD Was Beta Gil taken within 24 hours: N/A Was Clonidine taken within 24 hours: N/A Last intake: Intake Last Liquid Date 12/26/24 Last Liquid Time 22:00 Last Solid Date 12/26/24 Last Solid Time 22:00 Social Tobacco and No alcohol Exam alert, oriented x 3, clear to auscultation bilaterally and regular rate & rhythm Airway Submandibular: within normal limits Cervical ROM: within normal limits Mallampati: Class II Dentition: full Anesthetic Plan ASA status: 3 Anesthesia: MAC Other: No prior issues with anesthesia NPO since yesterday evening History of hypertension on metoprolol GERD, on Pepcid ALISIA, no treatment EKG showing incomplete RBBB Patient follows with cardiology for recurrent chest pains. Plans to follow-up with them in 6 months Plan for MAC anesthesia with local via surgeon Medications/Allergies Home Medications ?Medication ?Instructions ?Recorded ?Confirmed ?Last Taken ?Type simvastatin 20 mg tablet 20 mg PO DAILY 01/30/21 12/26/24 12/26/24 History nebulizer accessories #1 ea 05/13/22 11/28/24 Unknown Rx metoprolol tartrate 25 mg tablet 12.5 mg (1/2 x 25 mg) PO BID #30 11/18/22 12/26/24 12/26/24 Rx tabs cholecalciferol (vitamin D3) 50 50 mcg PO DAILY 01/02/23 12/26/24 12/26/24 History mcg (2,000 unit) capsule coenzyme Q10 30 mg capsule (Co 30 mg PO DAILY 01/02/23 12/26/24 12/26/24 History Q-10) diclofenac sodium 75 mg 75 mg PO BID PRN pain #60 tabs 02/20/23 12/26/24 Unknown Rx tablet,delayed release aspirin 81 mg tablet 81 mg PO DAILY 12/26/24 12/26/24 12/26/24 History famotidine 20 mg tablet (Pepcid) 20 mg PO BID 12/26/24 12/26/24 12/26/24 History memantine 5 mg tablet 5 mg PO DAILY 12/26/24 12/26/24 12/26/24 History montelukast 10 mg tablet 10 mg PO DAILY 12/26/24 12/26/24 12/26/24 History (Singulair) Allergies Allergy/AdvReac Type Severity Reaction Status Date / Time No Known Allergies Allergy Verified 12/27/24 06:54 Current Medications Generic Name Dose Route Start Last Admin Trade Name Freq PRN Reason Stop Dose Admin Sodium Chloride 1,000 mls @ 30 mls/hr 12/27/24 07:00 12/27/24 07:12 Sodium Chloride 0.9% IV 12/28/24 06:59 30 mls/hr .Q24H RANDY Administration PFSH Anesthesia Medical History Chest pain Ataxia Memory loss Insomnia Adjustment disorder with depressed mood Dizziness and giddiness GERD (gastroesophageal reflux disease) Low back pain Peripheral vertigo Dementia Hx of retained foreign body fully removed Hyperlipidemia Sleep apnea Syncope and collapse Surgical History History of mandibular surgery History of back surgery Family History Family/Other Cancer CAD (coronary artery disease) Lung disease Father Dementia Grandfather Dementia Brother Diabetes Sister Diabetes Lung disease Other Hyperlipidemia Denies family history of Clotting disorder Chronic kidney disease (CKD) Suicide Anesthesia complication Bleeding disorder Stroke Social History Smoking and tobacco/nicotine status: current every day tobacco/nicotine user cigarettes Packs smoked per day: 1 Years cigarettes smoked: 50 Second hand smoke exposure: No Alcohol intake: never Substance/Drug Use: never Caregiver/support person: No Lives independently: Yes Household members: spouse Marital status: service: Yes branch: [employer] Current occupational status: retired Current gender identity: Male Special rex needs: No Data Anesthesia Cardiac Studies: Echocardiogram Ultrasound 04/16/21 Sestamibi Stress Test (Cardiology) 05/22/21 Cardiac Event Monitor 03/07/21
[2024-12-27] MEDS: ceFAZolin 2,000 mg SDV 2000 MG IVP (08:08)
[2024-12-27] MEDS: BUPivacaine 0.5% INJ 10 mL INJECTION (08:18)
--- NOTE | 2024-12-27 08:38 | P.OP_ITS ---
Operative Report Date of procedure: December 27, 2024 Surgeon: Stanley Reynolds MD Procedure: Preop diagnosis: Trigger finger left long finger, foreign body dorsal third MCP joint Postop diagnosis: Same Procedure: Left long finger trigger release, excision of foreign body dorsal left hand Surgeon: Stanley Reynolds MD Anesthesia: IV sedation with local anesthetic EBL: None Tourniquet time: 8 minutes at 250 mmHg Indications: Roel is a 69-year-old white male presented the orthopedic clinics with a locking trigger finger left long finger. He said pain problems difficulties with this. Said a previous injury to his hand where he had some metal shrapnel embedded in his hand. He now has a piece just to the third webspace side of the proximal portion proximal phalanx long finger that he states hurts and causes difficulties and would like to have this extracted. It appears to be palpable at the time of exam and therefore I have offered to try and excise this but will not do a large dissection if it is deeper. Patient un derstand this and wishes to proceed with surgical intervention. All risks benefits and treatment alternatives were discussed with him. Procedure: After obtaining written consent patient was taken to the operating room on his [facility]. While on the [facility] he received IV sedation. Pneumatic cuffs placed on the proximal left arm. Left arm was prepped and draped usual fashion. After surgical timeout half percent plain Marcaine was applied to the palmar surface of his hand at the level of the A1 [place] long finger. Incision was then made through the palmar crease directly over the A1 [place]. Sharp dissection taken on down to subcutaneous tissues. Blunt sharp dissection was then done with small tenotomy scissors until tendon sheath was identified. Tendon sheath was divided longitudinally with a #15 blade. Tenotomy scissors were then used to complete the transection of the A1 [place]. Once good release had been achieved fingerprint to range of motion demonstrating good gliding of the tendon. Wound was then closed with 3-0 nylon running horizontal mattress suture. Hand was turned over and identification of a foreign body site was identified. This too was anesthetized with half percent Marcaine plain subsequently a longitudinal incision was made along the border of the proximal phalanx at the level of the MCP joint in the third webspace. Sharp dissection to gone down to subtenons tissues. Tenotomy scissors were then used in a spreading fashion to finally identify the foreign body. Once this was identified and dissected out it is grasped with a pair of pickups and removed in block without any difficulties. Wound was then closed with running 3-0 nylon horizontal mattress suture. Pneumatic cuff deflated after 8 minutes total tourniquet time. Wounds are dressed with Xeroform gauze, sterile gauze dressing, Kerlix wrap, Julian wrap for compression. Patient was awakened transferred to cover room stable condition.
--- NOTE | 2024-12-27 09:13 | ANE.PACU2 ---
Inpatient post-anesthesia follow up: Airway intact: Yes Vital signs: Temperature 97.3 F Pulse Rate 59 Respiratory Rate 18 Blood Pressure 130/73 Pulse Oximetry 98 Oxygen Delivery Me thod Room Air Oxygen Flow Rate 10 Fraction of Inspir ed Oxygen Hydration adequate: Yes Nausea and vomiting: No Pain level: 1 Mental status: Baseline
== END 2024-12-27 09:13 | disposition home or self-care (01) ==
PROVIDERS: PCP Family Medicine; Visit Provider Orthopaedic Surgery
PROC: (CPT 26055; principal; 2024-12-27 08:05)
DX: M65.332 Trigger finger, left middle finger (principal); I45.10 Unspecified right bundle-branch block; G47.33 Obstructive sleep apnea (adult) (pediatric); E78.5 Hyperlipidemia, unspecified; F17.210 Nicotine dependence, cigarettes, uncomplicated; F03.90 Unspecified dementia, unspecified severity, without behavioral disturbance, psychotic disturbance, mood disturbance, and anxiety; K21.9 Gastro-esophageal reflux disease without esophagitis; Z79.82 Long term (current) use of aspirin; Z79.899 Other long term (current) drug therapy; Z18.10 Retained metal fragments, unspecified
CPT/HCPCS: 26075; 26055; J0690; J2704; J3010; J3490; J7030

== ENCOUNTER → 2025-01-09 10:29 | Outpatient (BNVA) | payer OTHER, SELFPAY | PROVIDERS: PCP Family Medicine; Visit Provider Orthopaedic Surgery | DX: Z98.890 Other specified postprocedural states (principal) | CPT/HCPCS: 99024 ==

== ENCOUNTER 2025-01-12 08:02 | Outpatient (CLI) | payer OTHER, SELFPAY ==
--- NOTE | 2025-01-12 08:23 | ECG_ITS ---
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 Interpretive Statements Lung unchanged pre/post procedure; Intraprocedure shortess of breath; Symptoms resoled by discharge PROCEDURE: At the baseline, the patient's blood pressure was 149/72 with a heart rate of 71. The baseline electrocardiogram showed normal sinus rhythm with incomplete right bundle branch block pattern.. The patient exercised for 9 minutes and 52 seconds on a standard Candelario protocol. Patient attained a maximum heart rate of 130 beats per minute(86% of the maximum predicted heart rate) with a blood pressure at the peak exercise of 179/62 mm Hg. The EKG at the peak exercise revealed no significant changes. Patient did not have any chest pain or any significant cardiac arrhythmias with the exercise During the recovery phase, there were no new changes. Blood pressure at the end of the recovery phase was 161/50 mm Hg with a heart rate of 90 per minute. CONCLUSION: 1. No significant EKG response to treadmill exercise 2. No exercise-induced chest pain or cardiac arrhythmia 3. Good exercise tolerance, attained a maximum of 13.5 METs Electronically Signed On 01-16-2025 12:44:31 CDT by Isidro Denton M.D. [email or web address]
--- NOTE | 2025-01-12 08:24 | NMCV_ITS ---
NM je perf SPECT r/s* [id number] Roel Dias Age: 70 Gender: M : 1955 Exam Date: 01/12/2025 09:16 Ordering Phys: Isidro Denton MD ([email or web address]) Technologist: DEWAYNE Can Exam Location: [facility] Indications: cp STRESS TEST Please see separate stress test report in [facility] for full findings IMAGE PROTOCOL Rest/Stress 1 Exercise Day Radiopharmaceutical Dose (mCi) Administration Site Administered by Rest: Tc-99m 10.8 IV DEWAYNE Can Sestamibi Stress:Tc-99m 32.9 IV DEWAYNE Can Sestamibi Rest: 12-Jan-2025 60 Discovery 630 Stress: 12-Jan-2025 30 Discovery 630 Radiopharmaceutical was injected at 85 % maximum heart rate. Images obtained in supine and prone position. SPECT RESULTS Technical Quality: Good Raw Data Analysis: Normal Image Corrections: No attenuation or motion correction applied Summed Stress Score: 0 Summed Rest Score: 0 Summed Difference Score: 0 PERFUSION FINDINGS Uniform myocardial tracer uptake with no significant perfusion abnormalities FUNCTIONAL RESULTS (calculated via Gated SPECT) Stress Image LV EF (%): 96 Stress EDV (mL):46 TID: 0.4 Stress ESV (mL):2 FUNCTIONAL FINDINGS: Segmental wall motion analysis revealing no gross wall motion abnormalities IMPRESSIONS 1. Myocardial perfusion imaging revealing uniform myocardial tracer uptake. 2. Normal LV ejection fraction of 96%. 3. LV wall motion analysis revealing no gross wall motion abnormalities. 4. Normal LV volume Low probability for coronary ischemia, based on the above findings Dr Isidro Denton MD FACC (Electronically Signed) Final Date: 13 Jan 2025 10:12 S
[2025-01-12 08:28] VITALS: BMI 25.0
[2025-01-12 10:10] VITALS: BP 161/56; PULSE 89
== END 2025-01-12 08:03 | disposition home or self-care (01) ==
LOC: CDL 08:03
PROVIDERS: PCP Family Medicine; Visit Provider Internal Medicine Cardiovascular Disease
DX: Z98.61 Coronary angioplasty status (principal)
CPT/HCPCS: 36415; 78452; 93017; 96374; A9500

== ENCOUNTER → 2025-07-27 10:47 | Outpatient (BNVA) | payer OTHER, SELFPAY | PROVIDERS: PCP Family Medicine; Visit Provider Nurse Practitioner Family | DX: R07.9 Chest pain, unspecified (principal); E78.5 Hyperlipidemia, unspecified; R00.2 Palpitations; I49.9 Cardiac arrhythmia, unspecified; I49.3 Ventricular premature depolarization; Z72.0 Tobacco use | CPT/HCPCS: 99213 ==